=== PATIENT | female | born 1970 ===

== ENCOUNTER 2021-09-03 15:46 | Emergency (ER) | payer SELFPAY ==
[~2021-09-03] VITALS: Ht 160 cm; Wt 54.4 kg
[~2021-09-03 15:46] MED LIST: Naprosyn500 MG PO; Robaxin-750750 MG PO
== END 2021-09-03 17:48 | disposition home or self-care (01) ==
LOC: ER 15:46
DX: S01.412A Laceration without foreign body of left cheek and temporomandibular area, initial encounter (principal); S05.42XA Penetrating wound of orbit with or without foreign body, left eye, initial encounter; F17.200 Nicotine dependence, unspecified, uncomplicated; X58.XXXA Exposure to other specified factors, initial encounter
CPT/HCPCS: 12001; 99283-25